=== PATIENT | male | born 1940 | race Caucasian/White ===

== ENCOUNTER 2023-06-02 10:25 | Outpatient (CLI) | payer MEDICARE, OTHER ==
[~2023-06-02] VITALS: Ht 185.4 cm; Wt 86.2 kg
[2023-06-05] MEDS ORDERED: ATOR80TA76 PO (13:41)
[2023-06-05] MEDS ORDERED: LEVO25CA4 PO (13:42)
[2023-06-05] MEDS ORDERED: CARB100T48 PO (13:43)
== END 2023-06-05 13:50 | disposition home or self-care (01) ==
LOC: PREOP 10:25
PROVIDERS: ATTEND Specialist
DX: Z01.818 Encounter for other preprocedural examination (principal)

== ENCOUNTER 2023-06-09 10:36 | Day surgery (SDC) | payer MEDICARE, OTHER ==
[~2023-06-09] VITALS: Ht 185.4 cm; Wt 86.2 kg
[~2023-06-09 10:36] MED LIST: ATOR80TA76 PO; CARB100T48 PO; LEVO25CA4 PO
[2023-06-09 12:30] VITALS: BP 189/98
[2023-06-09] MEDS ORDERED: LIDOCAINE PF 1% 2 ML VIAL IR PRN (12:30)
[2023-06-09] MEDS ORDERED: TIMOLOL 0.5% (CATARACTS) 0.3 ML BTL OU PRN (12:30)
[2023-06-09] MEDS ORDERED: POVIDONE IODINE OPHTH SOLN 5% 30 ML OP ONE (12:30)
[2023-06-09] MEDS ORDERED: MOXIFLOXACIN OPHTH SOLN 5 MG/ML 0.5 ML SYRINGE OP ONE (12:30)
[2023-06-09] MEDS: TETRACAINE 0.5% OPHTH SOLN 5 ML BTL OU PRN ×4 (12:41→12:56)
[2023-06-09] MEDS: PHENYLEPHRINE 10% OPHTH SOLN 5 ML BTL OU SCH ×3 (12:45→12:56)
[2023-06-09] MEDS: TROPICAMIDE 1% OPH SOLN (MYDRIACYL) 15 ML BTL OP SCH ×3 (12:50→12:56)
--- NOTE | 2023-06-09 13:38 | Ophthalmologist Pre-Op Note ---
Pre-Operative Progress Note H&P Reviewed The H&P was reviewed, patient examined and no changes noted. Date H&P Reviewed: Jun 09, 2023 Time H&P Reviewed: 13:38 Pre-Op Dx Cataract, Left Eye DIONY SCOTT MD Jun 09, 2023 13:38
[2023-06-09] MEDS ORDERED: MIDAZOLAM INJ 2 MG/2 ML VIAL ONE (13:40)
--- NOTE | 2023-06-09 14:03 | Ophthalmology Operative Report ---
Cataract removal/placement IOL PREOPERATIVE DIAGNOSIS: Cataract Left Eye POSTOPERATIVE DIAGNOSIS: Cataract Left Eye PROCEDURE: Cataract removal and placement of posterior chamber implant, left eye SURGEON: Spencer Scott ANESTHESIA: Topical with sedation COMPLICATIONS: None ESTIMATED BLOOD LOSS: Minimal DESCRIPTION OF PROCEDURE: After proper informed consent was obtained, the patient, a 82 male, was taken to the Operating Room and the left eye was anesthetized with tetracaine. The left eye was then prepped and draped in the usual manner. A wire lid speculum was placed. A paracentesis was made at the left hand position. Preservative free lidocaine was injected into the anterior chamber followed by viscoelastic. A clear corneal incision was made in the temporal position. A capsulorrhexis was preformed and the central nuclear and cortical material were removed. The posterior capsule was polished and an Yuriy 14.5 CNA0T0 was placed into the capsular bag. The residual viscoelastic was aspirated and balanced saline solution was injected into the anterior chamber. Moxifloxacin was injected into the anterior chamber. The wound was checked and found to be water tight. The patient tolerated the procedure well without complications. SPENCER SCOTT MD Jun 09, 2023 14:03
[2023-06-09 14:13] VITALS: BP 192/100
--- NOTE | 2023-06-09 14:36 | Anesthesia-General Post-Op ---
MAC Patient Condition Mental Status/LOC: Same as Preop Cardiovascular: Satisfactory Nausea/Vomiting: Absent Respiratory: Satisfactory Pain: Controlled Complications: Absent Post Op Complications Complications None Follow Up Care/Instructions Patient Instructions None needed. Anesthesiology Discharge Order Discharge Order Patient is doing well, no complaints, stable vital signs, no apparent adverse anesthesia problems. No complications reported per nursing. LINDA CARPENTER CRNA Jun 09, 2023 14:36
== END 2023-06-09 14:15 | disposition home or self-care (01) ==
LOC: SDC 10:36
PROVIDERS: ATTEND Specialist
DX: H26.9 Unspecified cataract (principal); Z87.891 Personal history of nicotine dependence
CPT/HCPCS: 66984; V2632

== ENCOUNTER 2023-06-27 10:14 | Outpatient (CLI) | payer MEDICARE ==
[~2023-06-27] VITALS: Ht 185 cm; Wt 86.0 kg
[2023-06-27] MEDS ORDERED: LOSA25TA41 PO (13:39)
== END 2023-06-27 13:49 | disposition home or self-care (01) ==
LOC: PREOP 10:14
PROVIDERS: ATTEND Specialist
DX: Z01.818 Encounter for other preprocedural examination (principal)

== ENCOUNTER 2023-06-30 10:42 | Day surgery (SDC) | payer MEDICARE ==
[~2023-06-30] VITALS: Ht 185 cm; Wt 86.0 kg
[~2023-06-30 10:42] MED LIST changes: +LOSA25TA41 PO
[2023-06-30] MEDS ORDERED: POVIDONE IODINE OPHTH SOLN 5% 30 ML OP ONE (10:45)
[2023-06-30] MEDS ORDERED: MOXIFLOXACIN OPHTH SOLN 5 MG/ML 0.5 ML SYRINGE OP ONE (10:45)
[2023-06-30] MEDS ORDERED: LIDOCAINE PF 1% 2 ML VIAL IR PRN (10:45)
[2023-06-30] MEDS ORDERED: TIMOLOL 0.5% (CATARACTS) 0.3 ML BTL OU PRN (10:45)
[2023-06-30] MEDS ORDERED: MIDAZOLAM INJ 2 MG/2 ML VIAL ONE (10:48)
[2023-06-30] MEDS: TETRACAINE 0.5% OPHTH SOLN 5 ML BTL OU PRN ×4 (10:53→11:12)
[2023-06-30] MEDS: TROPICAMIDE 1% OPH SOLN (MYDRIACYL) 15 ML BTL OP SCH ×3 (11:01→11:12)
[2023-06-30] MEDS: PHENYLEPHRINE 10% OPHTH SOLN 5 ML BTL OU SCH ×3 (11:01→11:12)
[2023-06-30 11:03] VITALS: BP 195/101
--- NOTE | 2023-06-30 11:22 | Ophthalmologist Pre-Op Note ---
Pre-Operative Progress Note H&P Reviewed The H&P was reviewed, patient examined and no changes noted. Date H&P Reviewed: Jun 30, 2023 Time H&P Reviewed: 11:22 Pre-Op Dx Cataract, Right Eye DIONY SCOTT MD Jun 30, 2023 11:22
--- NOTE | 2023-06-30 11:45 | Ophthalmology Operative Report ---
Cataract removal/placement IOL PREOPERATIVE DIAGNOSIS: Cataract Right Eye POSTOPERATIVE DIAGNOSIS: Cataract Right Eye PROCEDURE: Cataract removal and placement of posterior chamber implant, right eye SURGEON: Spencer Scott ANESTHESIA: Topical with sedation COMPLICATIONS: None ESTIMATED BLOOD LOSS: Minimal DESCRIPTION OF PROCEDURE: After proper informed consent was obtained, the patient, a 82 male, was taken to the Operating Room and the right eye was anesthetized with tetracaine. The right eye was then prepped and draped in the usual manner. A wire lid speculum was placed. A paracentesis was made at the left hand position. Preservative free lidocaine was injected into the anterior chamber followed by viscoelastic. A clear corneal incision was made in the temporal position. A capsulorrhexis was preformed and the central nuclear and cortical material were removed. The posterior capsule was polished and Yuriy 15.0 CNA0T0 IOL was placed into the capsular bag. The residual viscoelastic was aspirated and balanced saline solution was injected into the anterior chamber. Moxifloxacin was injected into the anterior chamber. The wound was checked and found to be water tight. The patient tolerated the procedure well without complications. SPENCER SCOTT MD Jun 30, 2023 11:45
[2023-06-30 12:05] VITALS: BP 175/102
--- NOTE | 2023-06-30 12:58 | Anesthesia-General Post-Op ---
MAC Patient Condition Mental Status/LOC: Same as Preop Cardiovascular: Satisfactory Nausea/Vomiting: Absent Respiratory: Satisfactory Pain: Controlled Complications: Absent Post Op Complications Complications None Follow Up Care/Instructions Patient Instructions None needed. Anesthesiology Discharge Order Discharge Order Patient was doing well after the procedure with no complaints, stable vital signs, no apparent adverse anesthesia problems. No complications reported per nursing. ORIANA ANDREWS DO Jun 30, 2023 12:58
== END 2023-06-30 12:08 | disposition home or self-care (01) ==
LOC: SDC 10:42
PROVIDERS: ATTEND Specialist
DX: H25.9 Unspecified age-related cataract (principal); Z87.891 Personal history of nicotine dependence; Z95.5 Presence of coronary angioplasty implant and graft
CPT/HCPCS: 66984; V2632